=== PATIENT | female | born 1985 | race Two or more races ===

== ENCOUNTER 2023-08-08 09:09 | Emergency (ER) | payer MEDICAID, OTHER ==
[~2023-08-08] VITALS: Ht 170.2 cm; Wt 95.5 kg
[2023-08-08 09:38] VITALS: BP 144/77; PULSE 104; RESP 20; TEMP 98.2; O2SAT 95
[2023-08-08 10:46] LABS: Red Blood Cells 4.69 10^6/uL (4.0-5.20)
[2023-08-08 10:48] LABS: Basophils # (auto) 0.2 10 ^3/uL (0-0.2); Basophils % (auto) 1.9 % (0.0-2.0); Eosinophils # (auto) 0.1 10 ^3/uL (0-0.8); Eosinophils % (auto) 1.2 % (0.0-7.0); Hematocrit 29.5 % (36.0-46.0); Hemoglobin 8.7 g/dL (12.2-16.2); Lymphocytes # (auto) 1.8 10 ^3/uL (0.4-5.4); Lymphocytes % (auto) 22.9 % (10.0-50.0); Mean Corpuscular Hemoglobin 18.5 pg (28.0-32.0); Mean Corpuscular Hgb Conc. 29.4 g/dL (32.0-36.0); Mean Corpuscular Volume 62.8 fL (80.0-100.0); Monocytes # (auto) 0.7 10 ^3/uL (0-1.3); Monocytes % (auto) 8.2 % (0.0-12.0); Neutrophils # (auto) 5.3 10 ^3/uL (1.6-8.6); Neutrophils % (auto) 65.8 % (37.0-80.0)
[2023-08-08 10:49] LABS: Red Cell Distribution Width 22.7 % (11.8-14.3)
[2023-08-08 11:04] LABS: Alanine Aminotransferase 21 U/L (7-40); Albumin 4.6 g/dL (3.2-4.8); Alkaline Phosphatase 87 U/L (46-116); Anion Gap 7 (5-15); Aspartate Aminotransferase 17 U/L (13-40); BUN/Creatinine Ratio 9.7 (10.0-20.0); Bilirubin, Total 0.5 mg/dL (0.2-1.0); Blood Urea Nitrogen 7 mg/dL (9-23); Calcium 9.5 mg/dL (8.5-10.1); Carbon Dioxide 26 mmol/L (20-30); Chloride 103 mmol/L (98-107); Glucose 102 mg/dL (74-106); Potassium 3.7 mmol/L (3.5-5.1); Sodium 136 mmol/L (136-145); Total Protein 7.7 g/dL (5.7-8.2)
[2023-08-08] MEDS ORDERED: IOHEXOL 300 MG/ML 100ML BOTTLE IJ ONE (12:04)
[2023-08-08 12:07] LABS: Platelet Estimate Increased
[2023-08-08 12:08] LABS: Anisocytosis Slight; Hypochromia Marked
[2023-08-08] MEDS ORDERED: CLIN300C70 PO (13:28)
[2023-08-08] MEDS ORDERED: IBUP1TAB5 PO (13:28)
== END 2023-08-08 13:47 | disposition home or self-care (01) ==
LOC: ER 09:09
DX: K04.7 Periapical abscess without sinus (principal); M54.2 Cervicalgia
CPT/HCPCS: 36415; 70491; 80053; 85025; 99285; Q9967